=== PATIENT | female | born 1985 | race African-American/Black ===

== ENCOUNTER 2024-01-26 18:09 | Emergency (ER) | payer SELFPAY ==
[~2024-01-26] VITALS: Ht 167.6 cm; Wt 91.0 kg
[2024-01-26 18:36] VITALS: BP 143/89; PULSE 75; RESP 18; TEMP 97.3; O2SAT 100
[2024-01-26 19:20] LABS: CHLORIDE 107 mEq/L (98-107); POTASSIUM 3.7 mEq/L (3.5-5.1); SODIUM 138 mEq/L (136-145)
[2024-01-26 19:21] LABS: CARBON DIOXIDE 25 mEq/L (21-32); HEMATOCRIT. 44.8 % (36.0-48.0); HEMOGLOBIN. 15.1 g/dL (12.0-16.0); MEAN CORPUSCULAR HEMOGLOBIN 32.7 pg (28.0-32.0); MEAN CORPUSCULAR HGB CONC 33.8 g/dL (31.0-37.0); MEAN PLATELET VOLUME 8.3 fl (7.4-10.4); PLATELET 423 x1000/uL (130-400); RED BLOOD CELL COUNT 4.62 mill/uL (4.2-5.4); RED CELL DISTRIBUTION WIDTH 13.7 % (11.6-14.6); WHITE BLOOD COUNT 13.4 x1000/uL (4.5-11.0)
[2024-01-26 19:22] LABS: CALCIUM 9.8 mg/dL (8.7-10.4)
[2024-01-26 19:24] LABS: DIFFERENTIAL COMMENT 1
[2024-01-26 19:26] LABS: CREATININE 0.8 mg/dL (0.6-1.0); GLUCOSE 181 mg/dL (70-105)
[2024-01-26 19:27] LABS: UREA NITROGEN BLOOD 14 mg/dL (9-23)
[2024-01-26 19:28] LABS: ALANINE AMINOTRANSFERASE 32 IU/L (10-49); ALBUMIN 4.9 g/dL (3.2-4.8); ASPARTATE AMINOTRANSFERASE 24 IU/L (<34)
[2024-01-26 19:29] LABS: BILIRUBIN TOTAL 1.2 mg/dL (0.1-1.0); PROTEIN TOTAL 7.9 g/dL (6.0-8.3)
[2024-01-26 19:36] LABS: HCG SCREEN NEGATIVE
[2024-01-26 20:01] LABS: PLATELET ESTIMATE NORMAL
== END 2024-01-27 01:14 | disposition home or self-care (01) ==
LOC: ER 18:09
DX: R11.10 Vomiting, unspecified (principal)
CPT/HCPCS: 36415; 80053; 84703; 85025; 99283